=== PATIENT | female | born 1975 | race Caucasian/White ===

== ENCOUNTER 2025-08-20 10:54 | Emergency (ER) | payer BC ==
[2025-08-20] MEDS ORDERED: diphenhydrAMINE 50 MG/ML VIAL ONE (11:15)
[2025-08-20] MEDS ORDERED: Prochlorperazine 10 MG/2 ML VIAL ONE (11:16)
[2025-08-20] MEDS ORDERED: Ketorolac Tromethamine 30 MG (1 mL) VIAL ONE (11:16)
[2025-08-20] MEDS ORDERED: Acetaminophen 500 MG TAB ONE (12:25)
== END 2025-08-20 13:34 | disposition home or self-care (01) ==
LOC: NAV ERS 10:54
DX: G43.909 Migraine, unspecified, not intractable, without status migrainosus (principal)
CPT/HCPCS: 96361; 96365; 96375; J0780; J1200; J1885; J7030